=== PATIENT | female | born 1990 | race American Indian/Alaskan Native ===

== ENCOUNTER 2018-05-02 11:51 | Outpatient (CLI) | payer OTHER | END 2018-05-02 13:12 | disposition home or self-care (01) | LOC: NST 11:51 | DX: Z34.83 Encounter for supervision of other normal pregnancy, third trimester (principal) ==

== ENCOUNTER 2018-05-16 15:41 | Outpatient (CLI) | payer OTHER | END 2018-05-16 16:00 | disposition home or self-care (01) | LOC: NST 15:41 | DX: Z34.83 Encounter for supervision of other normal pregnancy, third trimester (principal) ==

== ENCOUNTER 2018-05-31 08:38 | Outpatient (CLI) | payer OTHER | END 2018-05-31 09:33 | disposition home or self-care (01) | LOC: NST 08:38 | DX: Z34.03 Encounter for supervision of normal first pregnancy, third trimester (principal) ==

== ENCOUNTER 2018-06-28 12:15 | Inpatient (IN) | payer OTHER ==
[~2018-06-28] VITALS: Ht 172.7 cm; Wt 2.7 kg
[2018-06-28] MEDS ORDERED: PRENATE ELITE1 EAC2 PO (13:28)
[2018-06-28] MEDS ORDERED: DICLEGIS DR 101 EACH PO (13:29)
[2018-07-05] MEDS ORDERED: PROGESTERO50 MG/1 M1 IM (12:11)
== END 2018-07-08 12:31 | disposition home or self-care, planned readmission (81) | DRG 766 ==
LOC: LDR 07-05 12:03 → O/R 07-05 16:39 → SURG-SUITE 07-05 18:47 → LDR 07-19 12:15
PROVIDERS: Obstetrics & Gynecology Maternal & Fetal Medicine
PROC: 0UB70ZZ Excision of Bilateral Fallopian Tubes, Open Approach (ICD-10-PCS; 2018-07-05)
PROC: 4A1HXCZ Monitoring of Products of Conception, Cardiac Rate, External Approach (ICD-10-PCS; 2018-07-05)
PROC: 10D00Z1 Extraction of Products of Conception, Low, Open Approach (ICD-10-PCS; principal; 2018-07-05 16:30)
DX: O34.211 Maternal care for low transverse scar from previous cesarean delivery (principal); O75.82 Onset (spontaneous) of labor after 37 completed weeks of gestation but before 39 completed weeks gestation, with delivery by (planned) cesarean section; Z3A.38 38 weeks gestation of pregnancy; Z37.0 Single live birth; Z30.2 Encounter for sterilization

== ENCOUNTER 2018-12-18 09:23 | Day surgery (SDC) | payer OTHER ==
[~2018-12-18 09:23] MED LIST: DICLEGIS DR 101 EACH PO; PRENATE ELITE1 EAC2 PO; PROGESTERO50 MG/1 M1 IM
== END 2018-12-18 22:00 | disposition home or self-care (01) ==
LOC: CIR.AMB 09:23
DX: N84.0 Polyp of corpus uteri (principal)

== ENCOUNTER 2022-03-08 06:56 | Day surgery (SDC) | payer OTHER ==
[~2022-03-08] VITALS: Ht 172.7 cm; Wt 68.0 kg
== END 2022-03-08 16:20 | disposition home or self-care (01) ==
LOC: CIR.AMB 06:56
PROVIDERS: ATTEND Obstetrics & Gynecology
DX: N84.0 Polyp of corpus uteri (principal); J45.909 Unspecified asthma, uncomplicated; K76.0 Fatty (change of) liver, not elsewhere classified; K21.9 Gastro-esophageal reflux disease without esophagitis